=== PATIENT | female | born 1990 | race Caucasian/White ===

== ENCOUNTER 2020-06-17 17:21 | Inpatient (IN) | payer BC ==
--- NOTE | 2020-06-02 05:52 | PCM.SN.2 ---
- Free Text/Narrative Note: Lauryn is a 29-year-old 1 para 0 white female at 36+ weeks gestational age who is transferred to labor and delivery for outpatient electronic monitoring and follow-up of a biophysical profile done on the afternoon of 06/01/2020 and evaluation of patient's ultrasound finding of a hypocoiled cord. Biophysical profile results were 4 on a scale of 8. Notably present was normal amount of amniotic fluid. Patient has reported good activity up to this point. Electronic monitoring was performed and showed a reactive nonstress test. No significant contractions were noted. This resulted in a total biophysical profile score of 6/10. Results of this were discussed with patient and she is reassured. Assessment: 1. 36+ week intrauterine -less than optimally reassuring with ultrasound portion of biophysical profile now with a score of 6/10 bleed biophysical profile which included a reactive nonstress test. 2. History of ultrasound finding of a hypocoiled umbilical cord. Patient has been informed of the possible chance of this fluid being increased risk for stillborn, growth restriction, meconium-stained amniotic fluid and section. Plan: Plan: 1. Repeat biophysical profile 06/02/2020. 2. Patient to continue monitoring activity very closely. She will call if this decreases in the next 20 hours.
[2020-06-17] MEDS: Lactated Ringers 1,000 ML IV SCH ×3 (18:00→21:11)
[2020-06-17] MEDS ORDERED: Ondansetron 4 MG/2 ML SDV IVPUSH PRN (18:02)
[2020-06-17] MEDS ORDERED: Nalbuphine 10 MG/1 ML Vial IVPUSH PRN (18:02)
[2020-06-17] MEDS ORDERED: Lidocaine 1% 50 ML MDV INJECT ONE (18:02)
[2020-06-17] MEDS ORDERED: Sodium Chloride 0.9% 10 ML Syringe FLUSH PRN (18:02)
[2020-06-17] MEDS ORDERED: Bupivacaine/fentaNYL/NS 100 ML Bag EPIDUR PRN (18:24)
[2020-06-17] MEDS ORDERED: diphenhydrAMINE 50 MG/ML SDV IVPUSH PRN (18:24)
[2020-06-17] MEDS ORDERED: ePHEDrine 50 MG/ML SDV IVPUSH PRN (18:24)
[2020-06-17] MEDS ORDERED: fentaNYL 100 MCG/2 ML SDV EPIDUR PRN (18:24)
--- NOTE | 2020-06-17 19:14 | PCM.PREANE ---
Preanesthetic Assessment - Procedure Proposed Procedure: Labor Epidural - Anesthesia/Transfusion/Family Hx Anesthesia History: Prior Anesthesia Without Reaction Family History of Anesthesia Reaction: No - Review of Systems General: No Symptoms Pulmonary: No Symptoms Cardiovascular: No Symptoms Gastrointestinal: Abdominal Pain, Constipation, Flatus Neurological: No Symptoms Other: Reports: None - Physical Assessment Height: 1.65 m Weight: 97.976 kg ASA Class: 2 Airway Class: Mallampati = 2 Dentition: Reports: Normal Dentition Thyro-Mental Finger Breadths: 2 Mouth Opening Finger Breadths: 2 ROM/Head Extension: Full Lungs: Clear to Auscultation, Normal Respiratory Effort Cardiovascular: Regular Rate, Regular Rhythm - Lab Values: Laboratory Last Values WBC 14.47 K/mm3 (3.98-10.04) H 06/17/20 18:06 RBC 4.40 M/mm3 (3.98-5.22) 06/17/20 18:06 Hgb 12.2 gm/dl (11.2-15.7) 06/17/20 18:06 Hct 37.3 % (34.1-44.9) 06/17/20 18:06 MCV 84.8 fl (79.4-94.8) 06/17/20 18:06 MCH 27.7 pg (25.6-32.2) 06/17/20 18:06 MCHC 32.7 g/dl (32.2-35.5) 06/17/20 18:06 RDW Std Deviation 43.3 fL (36.4-46.3) 06/17/20 18:06 Plt Count 204 K/mm3 (182-369) 06/17/20 18:06 MPV 8.9 fl (9.4-12.3) L 06/17/20 18:06 Neut % (Auto) 84.4 % (34.0-71.1) H 06/17/20 18:06 Lymph % (Auto) 9.9 % (19.3-51.7) L 06/17/20 18:06 [place] % (Auto) 5.2 % (4.7-12.5) 06/17/20 18:06 Eos % (Auto) 0.1 (0.7-5.8) L 06/17/20 18:06 Baso % (Auto) 0.1 % (0.1-1.2) 06/17/20 18:06 Neut # (Auto) 12.22 K/mm3 (1.56-6.13) H 06/17/20 18:06 Lymph # (Auto) 1.43 K/mm3 (1.18-3.74) 06/17/20 18:06 [place] # (Auto) 0.75 K/mm3 (0.24-0.36) H 06/17/20 18:06 Eos # (Auto) 0.01 K/mm3 (0.04-0.36) L 06/17/20 18:06 Baso # (Auto) 0.01 K/mm3 (0.01-0.08) 06/17/20 18:06 Manual Slide Review Abnormal smear 06/17/20 18:06 SARS-CoV-2 RNA (PENNY) Negative (NEGATIVE) 06/17/20 17:45 Blood Type O POSITIVE 06/17/20 18:06 - Allergies Allergies/Adverse Reactions: Allergies Allergy/AdvReac Type Severity Reaction Status Date / Time No Known Allergies Allergy Verified 06/01/20 16:49 - Acknowledgements Anesthesia Type Planned: Epidural Pt an Appropriate Candidate for the Planned Anesthesia: Yes Alternatives and Risks of Anesthesia Discussed w Pt/Guardian: Yes Pt/Guardian Understands and Agrees with Anesthesia Plan: Yes PreAnesthesia Questionnaire - HOME MEDS Home Medications: Home Meds Calcium Carbonate [Calcium] 500 mg PO DAILY 06/01/20 [History] Mv-Mn/Iron/FA/Herbal/Digestive [ One Tablet] 1 each PO DAILY 06/01/20 [History] - CURRENT (IN HOUSE) MEDS Current Meds: Current Medications Diphenhydramine HCl (Benadryl) 25 mg IVPUSH Q6H PRN PRN Reason: pruritis Ephedrine Sulfate (Ephedrine Sulfate) 5 mg IVPUSH ASDIRECTED PRN PRN Reason: Hypotension Fentanyl (Sublimaze) 100 mcg EPIDUR Q3H PRN PRN Reason: Pain Last Admin: 06/17/20 18:42 Dose: 100 mcg Documented by: Fentanyl/Bupivacaine HCl (Fentanyl/Bupivacaine/Ns 2 Mcg-0.125% 100 Ml) 100 ml EPIDUR ASDIRECTED PRN PRN Reason: Pain Last Admin: 06/17/20 18:43 Dose: 100 ml Documented by: Oxytocin/Lactated Ringer's (Pitocin In Lr 10 Units/1,000 Ml) 10 unit in 1,000 mls @ 500 mls/hr IV .CONTINUOUS SONIDO Lactated Ringer's (Ringers, Lactated) 1,000 mls @ 100 mls/hr IV ASDIRECTED SONIDO Last Admin: 06/17/20 18:44 Dose: 100 mls/hr Documented by: Nalbuphine HCl (Nubain) 10 mg IVPUSH Q2H PRN PRN Reason: Pain Ondansetron HCl (Zofran) 4 mg IVPUSH Q4H PRN PRN Reason: Nausea/Vomiting Sodium Chloride (Saline Flush) 10 ml FLUSH ASDIRECTED PRN PRN Reason: Keep Vein Open Discontinued Medications Lidocaine HCl (Xylocaine 1%) 50 ml INJECT ONETIME ONE Stop: 06/17/20 18:03
--- NOTE | 2020-06-17 19:27 | PCM.LDHP ---
<Lashon Pastor I - Last Filed: 06/17/20 19:15> L&D History of Present Illness - General Date of Service: 06/17/20 Admit Problem/Dx: Patient Status Order with Admit Dx/Problem 06/17/20 18:02 Patient Status [ADT] Routine Admission Diagnosis/Problem Admission Diagnosis/Problem Source of Information: Patient History Limitations: Reports: No Limitations - History of Present Illness Introduction:: Lauryn Lee is 29-year-old at 39 weeks 0 days with TEJAS of 06/24/2020 that presents to labor and delivery today with contractions that are 2 minutes apart. She reports that contractions began this morning at 5 am accompanied by discharge of parts of the mucus plug. She reports that upon arrival to the hospital, she experienced her bloody show. She states that she is experiencing good movement. Lauryn reports that she has experienced mild pedal edema throughout her that is alleviated by daily use of compression socks. She denies headache, changes in vision, or right upper quadrant pain. She denies heart palpitations, chest pain, or shortness of breath. Pain Score: 10 - Related Data Allergies/Adverse Reactions: Allergies Allergy/AdvReac Type Severity Reaction Status Date / Time No Known Allergies Allergy Verified 06/17/20 21:57 Home Medications: Home Meds Calcium Carbonate [Calcium] 500 mg PO DAILY 06/17/20 [History] Ferrous Sulfate [Iron] 325 mg PO DAILY 06/17/20 [History] No122/Iron/Folic Acid [ Multi Tablet] 1 each PO DAILY 06/17/20 [History] H&P Review of Systems - Review of Systems: Review Of Systems: See Below General: Reports: No Symptoms HEENT: Reports: No Symptoms Pulmonary: Reports: No Symptoms Cardiovascular: Reports: No Symptoms Gastrointestinal: Reports: No Symptoms Genitourinary: Reports: No Symptoms L&D Exam - Exam Exam: See Below - Vital Signs Weight: 216 lb - Exam General: Alert, Oriented Lungs: Clear to Auscultation, Normal Respiratory Effort Cardiovascular: Regular Rate, Regular Rhythm Extremities: No Pedal Edema - Patient Data Lab Results Last 24 hrs: Laboratory Results - last 24 hr 06/17/20 06/17/20 06/17/20 Range/Units 17:45 18:06 18:06 WBC 14.47 H (3.98-10.04) K/mm3 RBC 4.40 (3.98-5.22) M/mm3 Hgb 12.2 (11.2-15.7) gm/dl Hct 37.3 (34.1-44.9) % MCV 84.8 (79.4-94.8) fl MCH 27.7 (25.6-32.2) pg MCHC 32.7 (32.2-35.5) g/dl RDW Std Deviation 43.3 (36.4-46.3) fL Plt Count 204 (182-369) K/mm3 MPV 8.9 L (9.4-12.3) fl Neut % (Auto) 84.4 H (34.0-71.1) % Lymph % (Auto) 9.9 L (19.3-51.7) % [place] % (Auto) 5.2 (4.7-12.5) % Eos % (Auto) 0.1 L (0.7-5.8) Baso % (Auto) 0.1 (0.1-1.2) % Neut # (Auto) 12.22 H (1.56-6.13) K/mm3 Lymph # (Auto) 1.43 (1.18-3.74) K/mm3 [place] # (Auto) 0.75 H (0.24-0.36) K/mm3 Eos # (Auto) 0.01 L (0.04-0.36) K/mm3 Baso # (Auto) 0.01 (0.01-0.08) K/mm3 Manual Slide Review Abnormal smear SARS-CoV-2 RNA (PENNY) Negative (NEGATIVE) Blood Type O POSITIVE Result Diagrams: 06/17/20 18:06 Orders Last 24hrs: Active Orders 24 hr Category Date Time Status Patient Status [ADT] Routine ADT 06/17/20 18:02 Active Activity as Tolerated [RC] PFP Care 06/17/20 18:02 Active Communication Order [RC] ASDIRECTED Care 06/17/20 18:02 Active Heart Tones [RC] ASDIRECTED Care 06/17/20 18:03 Active Non Stress Test [RC] PER UNIT ROUTINE Care 06/17/20 18:02 Active Notify Provider [RC] ASDIRECTED Care 06/17/20 18:24 Active Notify Provider [RC] PFP Care 06/17/20 18:02 Active Notify Provider [RC] PRN Care 06/17/20 18:02 Active Peripheral IV Care [RC] . DIRECTED Care 06/17/20 18:03 Active Pump Management, Intrathecal [RC] ASDIRECTED Care 06/17/20 18:06 Active Urinary Catheter Assessment [RC] ASDIRECTED Care 06/17/20 18:02 Active Vital Signs [RC] PER UNIT ROUTINE Care 06/17/20 18:02 Active Regular Diet [DIET] Diet 06/17/20 Dinner Active RAPID PLASMA REAGIN,RPR [CHEM] Routine Lab 06/17/20 18:02 Ordered TYPE AND SCREEN [BBK] Stat Lab 06/17/20 18:06 Results Bupivacaine/fentaNYL/NS [fentaNYL/Bupivacaine/NS 2 MCG- Med 06/17/20 18:24 Active 0.125% 100 ML] 100 ml EPIDUR ASDIRECTED PRN Lactated Ringers [Ringers, Lactated] 1,000 ml Med 06/17/20 18:15 Active IV ASDIRECTED Nalbuphine [Nubain] Med 06/17/20 18:02 Active 10 mg IVPUSH Q2H PRN Ondansetron [Zofran] Med 06/17/20 18:02 Active 4 mg IVPUSH Q4H PRN Oxytocin/Lactated Ringers [Pitocin in LR 10 Units/1,000 Med 06/17/20 18:15 Ac tive ML] 10 unit in 1,000 ml IV .CONTINUOUS Sodium Chloride 0.9% [Saline Flush] Med 06/17/20 18:02 Active 10 ml FLUSH ASDIRECTED PRN diphenhydrAMINE [Benadryl] Med 06/17/20 18:24 Active 25 mg IVPUSH Q6H PRN ePHEDrine [ePHEDrine sulfate] Med 06/17/20 18:24 Active 5 mg IVPUSH ASDIRECTED PRN fentaNYL [Sublimaze] Med 06/17/20 18:24 Active 100 mcg EPIDUR Q3H PRN Electronic Heart Tones Ext w TOCO [WOMSER] Oth 06/17/20 18:02 Ordered Routine Electronic Heart Tones Internal [WOMSER] Per Unit Oth 06/17/20 18:02 Ordered Routine Peripheral IV Insertion Adult [OM.PC] Routine Oth 06/17/20 18:02 Ordered Resuscitation Status Routine Resus Stat 06/17/20 18:02 Ordered Medication Orders Diphenhydramine HCl (Benadryl) 25 mg IVPUSH Q6H PRN PRN Reason: pruritis Ephedrine Sulfate (Ephedrine Sulfate) 5 mg IVPUSH ASDIRECTED PRN PRN Reason: Hypotension Fentanyl (Sublimaze) 100 mcg EPIDUR Q3H PRN PRN Reason: Pain Last Admin: 06/17/20 18:42 Dose: 100 mcg Documented by: JOSE ANTONIO Fentanyl/Bupivacaine HCl (Fentanyl/Bupivacaine/Ns 2 Mcg-0.125% 100 Ml) 100 ml EPIDUR ASDIRECTED PRN PRN Reason: Pain Last Admin: 06/17/20 18:43 Dose: 100 ml Documented by: JOSE ANTONIO Oxytocin/Lactated Ringer's (Pitocin In Lr 10 Units/1,000 Ml) 10 unit in 1,000 mls @ 500 mls/hr IV .CONTINUOUS SONIDO Lactated Ringer's (Ringers, Lactated) 1,000 mls @ 100 mls/hr IV ASDIRECTED SONIDO Last Admin: 06/17/20 18:44 Dose: 100 mls/hr Documented by: JOSE ANTONIO Infusion: 06/17/20 18:44 Dose: 99 mls/hr Documented by: JOSE ANTONIO Admin: 06/17/20 18:00 Dose: 99 mls/hr Documented by: JOSE ANTONIO Nalbuphine HCl (Nubain) 10 mg IVPUSH Q2H PRN PRN Reason: Pain Ondansetron HCl (Zofran) 4 mg IVPUSH Q4H PRN PRN Reason: Nausea/Vomiting Sodium Chloride (Saline Flush) 10 ml FLUSH ASDIRECTED PRN PRN Reason: Keep Vein Open <Jeff Woods - Last Filed: 06/17/20 22:45> L&D History of Present Illness - General Admit Problem/Dx: Patient Status Order with Admit Dx/Problem 06/17/20 18:02 Patient Status [ADT] Routine Admission Diagnosis/Problem Admission Diagnosis/Problem - History of Present Illness Introduction:: 12/2019 blood type O+ antibody screen negative, hemoglobin/hematocrit 12.8/38.5 platelets 273,000, rubella immune, serology nonreactive, urine culture mixed joby, hepatitis B surface antigen negative, HIV negative, C and Chlamydia probe negative. hemoglobin/hematocrit 11.2/34.4 platelets 240,000, 1 hour OB glucose screen 169. 3-hour glucose tolerance test on 03/17/2020 fasting 85, 1 hour 122, 2-hour 130, 3-hour 112. RPR nonreactive on 03/15/2020 group B strep negative on 05/24/2020 L&D Exam - Vital Signs Vital Signs: Last Vital Signs Temp 97.8 F 06/17/20 19:15 Pulse 105 H 06/17/20 19:15 Resp 18 06/17/20 19:15 BP 106/53 L 06/17/20 19:15 Pulse Ox 100 06/17/20 19:15 - Patient Data Lab Results Last 24 hrs: Laboratory Results - last 24 hr 06/17/20 06/17/20 06/17/20 Range/Units 17:45 18:06 18:06 WBC 14.47 H (3.98-10.04) K/mm3 RBC 4.40 (3.98-5.22) M/mm3 Hgb 12.2 (11.2-15.7) gm/dl Hct 37.3 (34.1-44.9) % MCV 84.8 (79.4-94.8) fl MCH 27.7 (25.6-32.2) pg MCHC 32.7 (32.2-35.5) g/dl RDW Std Deviation 43.3 (36.4-46.3) fL Plt Count 204 (182-369) K/mm3 MPV 8.9 L (9.4-12.3) fl Neut % (Auto) 84.4 H (34.0-71.1) % Lymph % (Auto) 9.9 L (19.3-51.7) % [place] % (Auto) 5.2 (4.7-12.5) % Eos % (Auto) 0.1 L (0.7-5.8) Baso % (Auto) 0.1 (0.1-1.2) % Neut # (Auto) 12.22 H (1.56-6.13) K/mm3 Lymph # (Auto) 1.43 (1.18-3.74) K/mm3 [place] # (Auto) 0.75 H (0.24-0.36) K/mm3 Eos # (Auto) 0.01 L (0.04-0.36) K/mm3 Baso # (Auto) 0.01 (0.01-0.08) K/mm3 Manual Slide Review Abnormal smear SARS-CoV-2 RNA (PENNY) Negative (NEGATIVE) Blood Type O POSITIVE Gel Antibody Screen Negative Result Diagrams: 06/17/20 18:06 - Problem List (1) 39 weeks gestation of SNOMED Code(s): 30711277 ICD Code: Z3A.39 - 39 WEEKS GESTATION OF Status: Acute Current Visit: Yes Problem List Initiated/Reviewed/Updated: No Orders Last 24hrs: Active Orders 24 hr Category Date Time Status Patient Status [ADT] Routine ADT 06/17/20 18:02 Active Activity as Tolerated [RC] PFP Care 06/17/20 18:02 Active Communication Order [RC] ASDIRECTED Care 06/17/20 18:02 Active Notify Provider [RC] ASDIRECTED Care 06/17/20 18:24 Active Notify Provider [RC] PFP Care 06/17/20 18:02 Active Notify Provider [RC] PRN Care 06/17/20 18:02 Active Peripheral IV Care [RC] Q2HR Care 06/17/20 18:03 Active Urinary Catheter Assessment [RC] ASDIRECTED Care 06/17/20 18:02 Active Regular Diet [DIET] Diet 06/17/20 Dinner Active RAPID PLASMA REAGIN,RPR [CHEM] Routine Lab 06/17/20 18:02 Ordered Bupivacaine/fentaNYL/NS [fentaNYL/Bupivacaine/NS 2 MCG- Med 06/17/20 18:24 Active 0.125% 100 ML] 100 ml EPIDUR ASDIRECTED PRN Lactated Ringers [Ringers, Lactated] 1,000 ml Med 06/17/20 18:15 Active IV ASDIRECTED Nalbuphine [Nubain] Med 06/17/20 18:02 Active 10 mg IVPUSH Q2H PRN Ondansetron [Zofran] Med 06/17/20 18:02 Active 4 mg IVPUSH Q4H PRN Oxytocin/Lactated Ringers [Pitocin in LR 10 Units/1,000 Med 06/17/20 18:15 Active ML] 10 unit in 1,000 ml IV .CONTINUOUS Sodium Chloride 0.9% [Saline Flush] Med 06/17/20 18:02 Active 10 ml FLUSH ASDIRECTED PRN diphenhydrAMINE [Benadryl] Med 06/17/20 18:24 Active 25 mg IVPUSH Q6H PRN ePHEDrine [ePHEDrine sulfate] Med 06/17/20 18:24 Active 5 mg IVPUSH ASDIRECTED PRN fentaNYL [Sublimaze] Med 06/17/20 18:24 Active 100 mcg EPIDUR Q3H PRN Electronic Heart Tones Ext w TOCO [WOMSER] Oth 06/17/20 18:02 Ordered Routine Electronic Heart Tones Internal [WOMSER] Per Unit Oth 06/17/20 18:02 Ordered Routine Peripheral IV Insertion Adult [OM.PC] Routine Oth 06/17/20 18:02 Ordered Resuscitation Status Routine Resus Stat 06/17/20 18:02 Ordered Medication Orders Diphenhydramine HCl (Benadryl) 25 mg IVPUSH Q6H PRN PRN Reason: pruritis Ephedrine Sulfate (Ephedrine Sulfate) 5 mg IVPUSH ASDIRECTED PRN PRN Reason: Hypotension Fentanyl (Sublimaze) 100 mcg EPIDUR Q3H PRN PRN Reason: Pain Last Admin: 06/17/20 18:42 Dose: 100 mcg Documented by: JOSE ANTONIO Fentanyl/Bupivacaine HCl (Fentanyl/Bupivacaine/Ns 2 Mcg-0.125% 100 Ml) 100 ml EPIDUR ASDIRECTED PRN PRN Reason: Pain Last Admin: 06/17/20 18:43 Dose: 100 ml Documented by: JOSE ANTONIO Oxytocin/Lactated Ringer's (Pitocin In Lr 10 Units/1,000 Ml) 10 unit in 1,000 mls @ 500 mls/hr IV .CONTINUOUS SONIDO Lactated Ringer's (Ringers, Lactated) 1,000 mls @ 100 mls/hr IV ASDIRECTED SONIDO Last Admin: 06/17/20 21:11 Dose: 100 mls/hr Documented by: Infusion: 06/17/20 21:11 Dose: 100 mls/hr Documented by: Admin: 06/17/20 18:44 Dose: 100 mls/hr Documented by: JOSE ANTONIO Infusion: 06/17/20 18:44 Dose: 99 mls/hr Documented by: JOSE ANTONIO Admin: 06/17/20 18:00 Dose: 99 mls/hr Documented by: JOSE ANTONIO Nalbuphine HCl (Nubain) 10 mg IVPUSH Q2H PRN PRN Reason: Pain Ondansetron HCl (Zofran) 4 mg IVPUSH Q4H PRN PRN Reason: Nausea/Vomiting Sodium Chloride (Saline Flush) 10 ml FLUSH ASDIRECTED PRN PRN Reason: Keep Vein Open Patient seen, examined by me, discussed with student. Assessment/Plan Comment:: Plan delivery
[2020-06-17] MEDS: Oxytocin/Lactated Ringers 10 UNIT/1,000 ML BAG IV SCH (23:24)
--- NOTE | 2020-06-17 23:55 | PCM.DEL ---
L & D Note - General Info Date of Service: 06/17/20 Mother's Due Date: 06/24/20 - Delivery Note Labor: Spontaneous Delivery Outcome: Livebirth (female liveborn 2323 hours on ay 06/17/2020 UZMA over no epistiotomy with 2nd degree laceration under epidural anesthesia weight pending 8/9) Delivery Method: Spontaneous Vaginal Delivery-Single Infant Delivery Mode: Spontaneous Presentation: Left Occiput Anterior (UZMA) Nuchal Cord: None (hypocoiled cord) Prep: Povidone-Iodine (Betadine Anesthesia Type: Combined Spinal Epidural Amniotic Fluid Description: Clear Episiotomy Type: None Laceration: 2nd Degree (midline) Suture type: Other (monocryl) Suture size: 3-0 (x2) Placenta: Intact, Spontaneous (2328 hours Saturday06/17/2020 intack discarded hypocoiled cord) Cord: 3 Vessels Estimated Blood Loss: 250 Resuscitation Needed: No [place]: Suctioned, Bulb Syringe, Stimulated, Warmed, [place] Used, Warmer Used Provider: Jeff Woods Score 1 min: 8 Score 5 min: 9 - General Info Date of Service: 06/17/20 Admission Dx/Problem (Free Text): Patient Status Order with Admit Dx/Problem 06/17/20 18:02 Patient Status [ADT] Routine Admission Diagnosis/Problem Admission Diagnosis/Problem Functional Status: Reports: Pain Controlled - Review of Systems General: Reports: No Symptoms HEENT: Reports: No Symptoms Pulmonary: Reports: No Symptoms Cardiovascular: Reports: No Symptoms Gastrointestinal: Reports: No Symptoms Genitourinary: Reports: No Symptoms Musculoskeletal: Reports: No Symptoms Skin: Reports: No Symptoms Neurological: Reports: No Symptoms Psychiatric: Reports: No Symptoms - Patient Data Vitals - Most Recent: Last Vital Signs Temp 97.8 F 06/17/20 19:15 Pulse 105 H 06/17/20 19:15 Resp 18 06/17/20 19:15 BP 106/53 L 06/17/20 19:15 Pulse Ox 100 06/17/20 19:15 Weight - Most Recent: 216 lb 14.4 oz Lab Results Last 24 Hours: Laboratory Results - last 24 hr 06/17/20 06/17/20 06/17/20 Range/Units 17:45 18:06 18:06 WBC 14.47 H (3.98-10.04) K/mm3 RBC 4.40 (3.98-5.22) M/mm3 Hgb 12.2 (11.2-15.7) gm/dl Hct 37.3 (34.1-44.9) % MCV 84.8 (79.4-94.8) fl MCH 27.7 (25.6-32.2) pg MCHC 32.7 (32.2-35.5) g/dl RDW Std Deviation 43.3 (36.4-46.3) fL Plt Count 204 (182-369) K/mm3 MPV 8.9 L (9.4-12.3) fl Neut % (Auto) 84.4 H (34.0-71.1) % Lymph % (Auto) 9.9 L (19.3-51.7) % [place] % (Auto) 5.2 (4.7-12.5) % Eos % (Auto) 0.1 L (0.7-5.8) Baso % (Auto) 0.1 (0.1-1.2) % Neut # (Auto) 12.22 H (1.56-6.13) K/mm3 Lymph # (Auto) 1.43 (1.18-3.74) K/mm3 [place] # (Auto) 0.75 H (0.24-0.36) K/mm3 Eos # (Auto) 0.01 L (0.04-0.36) K/mm3 Baso # (Auto) 0.01 (0.01-0.08) K/mm3 Manual Slide Review Abnormal smear SARS-CoV-2 RNA (PENNY) Negative (NEGATIVE) Blood Type O POSITIVE Gel Antibody Screen Negative Med Orders - Current: Current Medications Diphenhydramine HCl (Benadryl) 25 mg IVPUSH Q6H PRN PRN Reason: pruritis Ephedrine Sulfate (Ephedrine Sulfate) 5 mg IVPUSH ASDIRECTED PRN PRN Reason: Hypotension Fentanyl (Sublimaze) 100 mcg EPIDUR Q3H PRN PRN Reason: Pain Last Admin: 06/17/20 18:42 Dose: 100 mcg Documented by: Fentanyl/Bupivacaine HCl (Fentanyl/Bupivacaine/Ns 2 Mcg-0.125% 100 Ml) 100 ml EPIDUR ASDIRECTED PRN PRN Reason: Pain Last Admin: 06/17/20 18:43 Dose: 100 ml Documented by: Oxytocin/Lactated Ringer's (Pitocin In Lr 10 Units/1,000 Ml) 10 unit in 1,000 mls @ 500 mls/hr IV .CONTINUOUS SONIDO Lactated Ringer's (Ringers, Lactated) 1,000 mls @ 100 mls/hr IV ASDIRECTED SONIDO Last Admin: 06/17/20 21:11 Dose: 100 mls/hr Documented by: Nalbuphine HCl (Nubain) 10 mg IVPUSH Q2H PRN PRN Reason: Pain Ondansetron HCl (Zofran) 4 mg IVPUSH Q4H PRN PRN Reason: Nausea/Vomiting Sodium Chloride (Saline Flush) 10 ml FLUSH ASDIRECTED PRN PRN Reason: Keep Vein Open Discontinued Medications Lidocaine HCl (Xylocaine 1%) 50 ml INJECT ONETIME ONE Stop: 06/17/20 18:03 - Exam Quality Assessment: DVT Prophylaxis General: Alert Extremities: Normal Inspection, Non-Tender, No Pedal Edema, Normal Capillary Refill - Problem List & Annotations (1) 39 weeks gestation of SNOMED Code(s): 38204913 Code(s): Z3A.39 - 39 WEEKS GESTATION OF Status: Acute Current Visit: Yes (2) Second degree perineal laceration during delivery SNOMED Code(s): 7079814 Code(s): O70.1 - SECOND DEGREE PERINEAL LACERATION DURING DELIVERY Status: Acute Current Visit: Yes (3) Cord complication NEC-deliv SNOMED Code(s): 353279114, 808160508 Code(s): O69.89X0 - LABOR AND DELIVERY COMPLICATED BY OTH CORD COMP, UNSP Status: Acute Current Visit: Yes - Problem List Review Problem List Initiated/Reviewed/Updated: No - My Orders Last 24 Hours: My Active Orders 06/17/20 Dinner Regular Diet [DIET] 06/17/20 18:02 Patient Status [ADT] Routine Activity as Tolerated [RC] PFP Communication Order [RC] ASDIRECTED Notify Provider [RC] PFP Notify Provider [RC] PRN Urinary Catheter Assessment [RC] ASDIRECTED RAPID PLASMA REAGIN,RPR [CHEM] Routine Nalbuphine [Nubain] 10 mg IVPUSH Q2H PRN Ondansetron [Zofran] 4 mg IVPUSH Q4H PRN Sodium Chloride 0.9% [Saline Flush] 10 ml FLUSH ASDIRECTED PRN Electronic Heart Tones Ext w TOCO [WOMSER] Routine Electronic Heart Tones Internal [WOMSER] Per Unit Routine Peripheral IV Insertion Adult [OM.PC] Routine Resuscitation Status Routine 06/17/20 18:03 Peripheral IV Care [RC] Q2HR 06/17/20 18:15 Lactated Ringers [Ringers, Lactated] 1,000 ml IV ASDIRECTED Oxytocin/Lactated Ringers [Pitocin in LR 10 Units/1,000 ML] 10 unit in 1,000 ml IV .CONTINUOUS - Plan Plan:: Plan delivery
[2020-06-18] MEDS: Oxytocin/Lactated Ringers 10 UNIT/1,000 ML BAG IV SCH (00:27)
[2020-06-18] MEDS ORDERED: Acetaminophen 325 MG Tab PO PRN (00:50)
[2020-06-18] MEDS ORDERED: Benzocaine/Menthol 20%-0.5% Spray 56 GM Canister TOP PRN (01:42)
[2020-06-18] MEDS ORDERED: Witch Hazel Medicated Pads 40/Jar TOP PRN (01:42)
[2020-06-18] MEDS ORDERED: Bupivacaine 0.25% 10 ML SDV ONE (06:00)
--- NOTE | 2020-06-18 10:11 | PCM.SN.2 ---
- Free Text/Narrative Note: exam Afebrile, chest clear, uterus at umbilicus -1. No heavy vaginal bleeding. No leg cramping.
[2020-06-18] MEDS: Ibuprofen 600 MG Tab PO PRN ×2 (14:26→22:45)
[2020-06-19] MEDS: Ibuprofen 600 MG Tab PO PRN (03:52)
--- NOTE | 2020-06-19 09:21 | PCM48HPAN ---
Post Anesthesia Note - EVALUATION WITHIN 48HRS OF ANESTHETIC Vital Signs in Normal Range: Yes Patient Participated in Evaluation: Yes Respiratory Function Stable: Yes Airway Patent: Yes Cardiovascular Function Stable: Yes Hydration Status Stable: Yes Pain Control Satisfactory: Yes Nausea and Vomiting Control Satisfactory: Yes Mental Status Recovered: Yes Vital Signs: Last Vital Signs Temp 36.5 C 06/19/20 08:40 Pulse 93 06/19/20 08:40 Resp 15 06/19/20 08:40 BP 119/78 06/19/20 08:40 Pulse Ox 99 06/19/20 08:40
--- NOTE | 2020-06-19 10:27 | PCM.DCSUM1 ---
Discharge Summary - Hospital Course Free Text/Narrative:: [facility] L/D Delivery Note Patient Name: KAITLYN GOMEZ Date of : 86 Patient Status: Inpatient Attending Provider: Jeff Woods Date: 06/17/20 23:48 Initialization Date: 06/17/20 23:48 L & D Note - General Info Date of Service: 06/17/20 Mother's Due Date: 06/24/20 - Delivery Note Labor: Spontaneous Delivery Outcome: Livebirth (female liveborn 2323 hours on 06/17/2020 UZMA over no epistiotomy with 2nd degree laceration under epidural anesthesia weight pending 8/9) Infant Delivery Method: Spontaneous Vaginal Delivery-Single Delivery Mode: Spontaneous Presentation: Left Occiput Anterior (UZMA) Nuchal Cord: None (hypocoiled cord) Prep: Povidone-Iodine (Betadine Anesthesia Type: Combined Spinal Epidural Amniotic Fluid Description: Clear Episiotomy Type: None Laceration: 2nd Degree (midline) Suture type: Other (monocryl) Suture size: 3-0 (x2) Placenta: Intact, Spontaneous (2328 hours Saturday06/17/2020 intack discarded hypocoiled cord) Cord: 3 Vessels Estimated Blood Loss: 250 Resuscitation Needed: No [place]: Suctioned, Bulb Syringe, Stimulated, Warmed, [place] Used, Warmer Used Provider: Jeff Woods Score 1 min: 8 Score 5 min: 9 - General Info Date of Service: 06/17/20 Admission Dx/Problem (Free Text): Patient Status Order with Admit Dx/Problem 06/17/20 18:02 Patient Status [ADT] Routine Admission Diagnosis/Problem Admission Diagnosis/Problem Functional Status: Reports: Pain Controlled - Review of Systems General: Reports: No Symptoms HEENT: Reports: No Symptoms Pulmonary: Reports: No Symptoms Cardiovascular: Reports: No Symptoms Gastrointestinal: Reports: No Symptoms Genitourinary: Reports: No Symptoms Musculoskeletal: Reports: No Symptoms Skin: Reports: No Symptoms Neurological: Reports: No Symptoms Psychiatric: Reports: No Symptoms - Patient Data Vitals - Most Recent: Last Vital Signs Temp 97.8 F 06/17/20 19:15 Pulse 105 H 06/17/20 19:15 Resp 18 06/17/20 19:15 BP 106/53 L 06/17/20 19:15 Pulse Ox 100 06/17/20 19:15 Weight - Most Recent: 216 lb 14.4 oz Lab Results Last 24 Hours: Laboratory Results - last 24 hr 06/17/20 06/17/20 06/17/20 Range/Units 17:45 18:06 18:06 WBC 14.47 H (3.98-10.04) K/mm3 RBC 4.40 (3.98-5.22) M/mm3 Hgb 12.2 (11.2-15.7) gm/dl Hct 37.3 (34.1-44.9) % MCV 84.8 (79.4-94.8) fl MCH 27.7 (25.6-32.2) pg MCHC 32.7 (32.2-35.5) g/dl RDW Std Deviation 43.3 (36.4-46.3) fL Plt Count 204 (182-369) K/mm3 MPV 8.9 L (9.4-12.3) fl Neut % (Auto) 84.4 H (34.0-71.1) % Lymph % (Auto) 9.9 L (19.3-51.7) % [place] % (Auto) 5.2 (4.7-12.5) % Eos % (Auto) 0.1 L (0.7-5.8) Baso % (Auto) 0.1 (0.1-1.2) % Neut # (Auto) 12.22 H (1.56-6.13) K/mm3 Lymph # (Auto) 1.43 (1.18-3.74) K/mm3 [place] # (Auto) 0.75 H (0.24-0.36) K/mm3 Eos # (Auto) 0.01 L (0.04-0.36) K/mm3 Baso # (Auto) 0.01 (0.01-0.08) K/mm3 Manual Slide Review Abnormal smear SARS-CoV-2 RNA (PENNY) Negative (NEGATIVE) Blood Type O POSITIVE Gel Antibody Screen Negative Med Orders - Current: Current Medications Diphenhydramine HCl (Benadryl) 25 mg IVPUSH Q6H PRN PRN Reason: pruritis Ephedrine Sulfate (Ephedrine Sulfate) 5 mg IVPUSH ASDIRECTED PRN PRN Reason: Hypotension Fentanyl (Sublimaze) 100 mcg EPIDUR Q3H PRN PRN Reason: Pain Last Admin: 06/17/20 18:42 Dose: 100 mcg Documented by: Fentanyl/Bupivacaine HCl (Fentanyl/Bupivacaine/Ns 2 Mcg-0.125% 100 Ml) 100 ml EPIDUR ASDIRECTED PRN PRN Reason: Pain Last Admin: 06/17/20 18:43 Dose: 100 ml Documented by: Oxytocin/Lactated Ringer's (Pitocin In Lr 10 Units/1,000 Ml) 10 unit in 1,000 mls @ 500 mls/hr IV .CONTINUOUS SONIDO Lactated Ringer's (Ringers, Lactated) 1,000 mls @ 100 mls/hr IV ASDIRECTED SONIDO Last Admin: 06/17/20 21:11 Dose: 100 mls/hr Documented by: Nalbuphine HCl (Nubain) 10 mg IVPUSH Q2H PRN PRN Reason: Pain Ondansetron HCl (Zofran) 4 mg IVPUSH Q4H PRN PRN Reason: Nausea/Vomiting Sodium Chloride (Saline Flush) 10 ml FLUSH ASDIRECTED PRN PRN Reason: Keep Vein Open Discontinued Medications Lidocaine HCl (Xylocaine 1%) 50 ml INJECT ONETIME ONE Stop: 06/17/20 18:03 - Exam Quality Assessment: DVT Prophylaxis General: Alert Extremities: Normal Inspection, Non-Tender, No Pedal Edema, Normal Capillary Refill - Problem List & Annotations (1) 39 weeks gestation of SNOMED Code(s): 42129947 Code(s): Z3A.39 - 39 WEEKS GESTATION OF Status: Acute Current Visit: Yes (2) Second degree perineal laceration during delivery SNOMED Code(s): 1679518 Code(s): O70.1 - SECOND DEGREE PERINEAL LACERATION DURING DELIVERY Status: Acute Current Visit: Yes (3) Cord complication NEC-deliv SNOMED Code(s): 199018150, 316354069 Code(s): O69.89X0 - LABOR AND DELIVERY COMPLICATED BY OTH CORD COMP, UNSP Status: Acute Current Visit: Yes - Problem List Review Problem List Initiated/Reviewed/Updated: No - My Orders Last 24 Hours: My Active Orders 12/04/20 Dinner Regular Diet [DIET] 06/17/20 18:02 Patient Status [ADT] Routine Activity as Tolerated [RC] PFP Communication Order [RC] ASDIRECTED Notify Provider [RC] PFP Notify Provider [RC] PRN Urinary Catheter Assessment [RC] ASDIRECTED RAPID PLASMA REAGIN,RPR [CHEM] Routine Nalbuphine [Nubain] 10 mg IVPUSH Q2H PRN Ondansetron [Zofran] 4 mg IVPUSH Q4H PRN Sodium Chloride 0.9% [Saline Flush] 10 ml FLUSH ASDIRECTED PRN Electronic Heart Tones Ext w TOCO [WOMSER] Routine Electronic Heart Tones Internal [WOMSER] Per Unit Routine Peripheral IV Insertion Adult [OM.PC] Routine Resuscitation Status Routine 06/17/20 18:03 Peripheral IV Care [RC] Q2HR 06/17/20 18:15 Lactated Ringers [Ringers, Lactated] 1,000 ml IV ASDIRECTED Oxytocin/Lactated Ringers [Pitocin in LR 10 Units/1,000 ML] 10 unit in 1,000 ml IV .CONTINUOUS - Plan Plan:: Plan delivery HPI Initial Comments: [facility] L/D Delivery Note Patient Name: KAITLYN GOMEZ Date of : 86 Patient Status: Inpatient Attending Provider: Jeff Woods Date: 06/17/20 23:48 Initialization Date: 06/17/20 23:48 L & D Note - General Info Date of Service: 06/17/20 Mother's Due Date: 06/24/20 - Delivery Note Labor: Spontaneous Delivery Outcome: Livebirth (female liveborn 2323 hours on Frdiay 06/17/2020 UZMA over no epistiotomy with 2nd degree laceration under epidural anesthesia weight pending 8/9) Infant Delivery Method: Spontaneous Vaginal Delivery-Single Infant Delivery Mode: Spontaneous Presentation: Left Occiput Anterior (UZMA) Nuchal Cord: None (hypocoiled cord) Prep: Povidone-Iodine (Betadine Anesthesia Type: Combined Spinal Epidural Amniotic Fluid Description: Clear Episiotomy Type: None Laceration: 2nd Degree (midline) Suture type: Other (monocryl) Suture size: 3-0 (x2) Placenta: Intact, Spontaneous (2328 hours Saturday06/17/2020 intack discarded hypocoiled cord) Cord: 3 Vessels Estimated Blood Loss: 250 Resuscitation Needed: No [place]: Suctioned, Bulb Syringe, Stimulated, Warmed, [place] Used, Warmer Used Provider: Jeff Woods Score 1 min: 8 Score 5 min: 9 - General Info Date of Service: 06/17/20 Admission Dx/Problem (Free Text): Patient Status Order with Admit Dx/Problem 06/17/20 18:02 Patient Status [ADT] Routine Admission Diagnosis/Problem Admission Diagnosis/Problem Functional Status: Reports: Pain Controlled - Review of Systems General: Reports: No Symptoms HEENT: Reports: No Symptoms Pulmonary: Reports: No Symptoms Cardiovascular: Reports: No Symptoms Gastrointestinal: Reports: No Symptoms Genitourinary: Reports: No Symptoms Musculoskeletal: Reports: No Symptoms Skin: Reports: No Symptoms Neurological: Reports: No Symptoms Psychiatric: Reports: No Symptoms - Patient Data Vitals - Most Recent: Last Vital Signs Temp 97.8 F 06/17/20 19:15 Pulse 105 H 06/17/20 19:15 Resp 18 06/17/20 19:15 BP 106/53 L 06/17/20 19:15 Pulse Ox 100 06/17/20 19:15 Weight - Most Recent: 216 lb 14.4 oz Lab Results Last 24 Hours: Laboratory Results - last 24 hr 06/17/20 06/17/20 06/17/20 Range/Units 17:45 18:06 18:06 WBC 14.47 H (3.98-10.04) K/mm3 RBC 4.40 (3.98-5.22) M/mm3 Hgb 12.2 (11.2-15.7) gm/dl Hct 37.3 (34.1-44.9) % MCV 84.8 (79.4-94.8) fl MCH 27.7 (25.6-32.2) pg MCHC 32.7 (32.2-35.5) g/dl RDW Std Deviation 43.3 (36.4-46.3) fL Plt Count 204 (182-369) K/mm3 MPV 8.9 L (9.4-12.3) fl Neut % (Auto) 84.4 H (34.0-71.1) % Lymph % (Auto) 9.9 L (19.3-51.7) % [place] % (Auto) 5.2 (4.7-12.5) % Eos % (Auto) 0.1 L (0.7-5.8) Baso % (Auto) 0.1 (0.1-1.2) % Neut # (Auto) 12.22 H (1.56-6.13) K/mm3 Lymph # (Auto) 1.43 (1.18-3.74) K/mm3 [place] # (Auto) 0.75 H (0.24-0.36) K/mm3 Eos # (Auto) 0.01 L (0.04-0.36) K/mm3 Baso # (Auto) 0.01 (0.01-0.08) K/mm3 Manual Slide Review Abnormal smear SARS-CoV-2 RNA (PENNY) Negative (NEGATIVE) Blood Type O POSITIVE Gel Antibody Screen Negative Med Orders - Current: Current Medications Diphenhydramine HCl (Benadryl) 25 mg IVPUSH Q6H PRN PRN Reason: pruritis Ephedrine Sulfate (Ephedrine Sulfate) 5 mg IVPUSH ASDIRECTED PRN PRN Reason: Hypotension Fentanyl (Sublimaze) 100 mcg EPIDUR Q3H PRN PRN Reason: Pain Last Admin: 06/17/20 18:42 Dose: 100 mcg Documented by: Fentanyl/Bupivacaine HCl (Fentanyl/Bupivacaine/Ns 2 Mcg-0.125% 100 Ml) 100 ml EPIDUR ASDIRECTED PRN PRN Reason: Pain Last Admin: 06/17/20 18:43 Dose: 100 ml Documented by: Oxytocin/Lactated Ringer's (Pitocin In Lr 10 Units/1,000 Ml) 10 unit in 1,000 mls @ 500 mls/hr IV .CONTINUOUS SONIDO Lactated Ringer's (Ringers, Lactated) 1,000 mls @ 100 mls/hr IV ASDIRECTED SONIDO Last Admin: 06/17/20 21:11 Dose: 100 mls/hr Documented by: Nalbuphine HCl (Nubain) 10 mg IVPUSH Q2H PRN PRN Reason: Pain Ondansetron HCl (Zofran) 4 mg IVPUSH Q4H PRN PRN Reason: Nausea/Vomiting Sodium Chloride (Saline Flush) 10 ml FLUSH ASDIRECTED PRN PRN Reason: Keep Vein Open Discontinued Medications Lidocaine HCl (Xylocaine 1%) 50 ml INJECT ONETIME ONE Stop: 06/17/20 18:03 - Exam Quality Assessment: DVT Prophylaxis General: Alert Extremities: Normal Inspection, Non-Tender, No Pedal Edema, Normal Capillary Refill - Problem List & Annotations (1) 39 weeks gestation of SNOMED Code(s): 49211484 Code(s): Z3A.39 - 39 WEEKS GESTATION OF Status: Acute Current Visit: Yes (2) Second degree perineal laceration during delivery SNOMED Code(s): 2829186 Code(s): O70.1 - SECOND DEGREE PERINEAL LACERATION DURING DELIVERY Status: Acute Current Visit: Yes (3) Cord complication NEC-deliv SNOMED Code(s): 227722803, 675820143 Code(s): O69.89X0 - LABOR AND DELIVERY COMPLICATED BY OTH CORD COMP, UNSP Status: Acute Current Visit: Yes - Problem List Review Problem List Initiated/Reviewed/Updated: No - My Orders Last 24 Hours: My Active Orders 06/17/20 Dinner Regular Diet [DIET] 06/17/20 18:02 Patient Status [ADT] Routine Activity as Tolerated [RC] PFP Communication Order [RC] ASDIRECTED Notify Provider [RC] PFP Notify Provider [RC] PRN Urinary Catheter Assessment [RC] ASDIRECTED RAPID PLASMA REAGIN,RPR [CHEM] Routine Nalbuphine [Nubain] 10 mg IVPUSH Q2H PRN Ondansetron [Zofran] 4 mg IVPUSH Q4H PRN Sodium Chloride 0.9% [Saline Flush] 10 ml FLUSH ASDIRECTED PRN Electronic Heart Tones Ext w TOCO [WOMSER] Routine Electronic Heart Tones Internal [WOMSER] Per Unit Routine Peripheral IV Insertion Adult [OM.PC] Routine Resuscitation Status Routine 06/17/20 18:03 Peripheral IV Care [RC] Q2HR 06/17/20 18:15 Lactated Ringers [Ringers, Lactated] 1,000 ml IV ASDIRECTED Oxytocin/Lactated Ringers [Pitocin in LR 10 Units/1,000 ML] 10 unit in 1,000 ml IV .CONTINUOUS - Plan Plan:: Plan delivery Brief History: [facility] LIVE . L/D Delivery Note. Patient Name: KAITLYN GOMEZ Record Number: [id number]. Date of : 86Patient Status: Inpatient. Attending Provider: Jeff Woodsbreanna Number: [id number]. Date: 06/17/20 23:48Initialization Date: 06/17/20 23:48. L & D Note. - General Info. Date of Service: 06/17/20. Mother's Due Date: 06/24/20. - Delivery Note. Labor: Spontaneous. Delivery Outcome: Livebirth (female liveborn 2323 hours on 06/17/2020 UZMA over no epistiotomy with 2nd degree laceration under epidural anesthesia weight pending 8/9). Delivery Method: Spontaneous Vaginal Delivery-Single. Delivery Mode: Spontaneous. Presentation: Left Occiput Anterior (UZMA). Nuchal Cord: None (hypocoiled cord). Prep: Povidone-Iodine (Betadine. Anesthesia Type: Combined Spinal Epidural. Amniotic Fluid Description: Clear. Episiotomy Type: None. Laceration: 2nd Degree (midline). Suture type: Other (monocryl). Suture size: 3-0 (x2). Placenta: Intact, Spontaneous (2328 hours Saturday06/17/2020 intack discarded hypocoiled cord). Cord: 3 Vessels. Estimated Blood Loss: 250. Resuscitation Needed: No. [place]: Suctioned, Bulb Syringe, Stimulated, Warmed, [place] Used, Warmer Used. Provider: Jeff Woods. Score 1 min: 8. Score 5 min: 9. - General Info. Date of Service: 06/17/20. Admission Dx/Problem (Free Text): Patient Status Order with Admit Dx/Problem. 06/17/20 18:02. Patient Status [ADT] Routine. Admission Diagnosis/Problem. Admission Diagnosis/Problem . Functional Status: Reports: Pain Controlled. - Review of Systems. General: Reports: No Symptoms. HEENT: Reports: No Symptoms. Pulmonary: Reports: No Symptoms. Cardiovascular: Reports: No Symptoms. Gastrointestinal: Reports: No Symptoms. Genitourinary: Reports: No Symptoms. Musculoskeletal: Reports: No Symptoms. Skin: Reports: No Symptoms. Neurological: Reports: No Symptoms. Psychiatric: Reports: No Symptoms. - Patient Data. Vitals - Most Recent: Last Vital Signs. Temp 97.8 F 06/17/20 19:15. Pulse 105 H 06/17/20 19:15. Resp 18 06/17/20 19:15. BP 106/53 L 06/17/20 19:15. Pulse Ox 100 06/17/20 19:15. Weight - Most Recent: 216 lb 14.4 oz. Lab Results Last 24 Hours: Laboratory Results - last 24 hr. 06/17/2012/10/2011Range/Units. 17:4518:0618:06. WBC 14.47 H (3.98-10.04) K/mm3. RBC 4.40 (3.98-5.22) M/mm3. Hgb 12.2 (11.2-15.7) gm/dl. Hct 37.3 (34.1-44.9) %. MCV 84.8 (79.4-94.8) fl. MCH 27.7 (25.6- 32.2) pg. MCHC 32.7 (32.2-35.5) g/dl. RDW Std Deviation 43.3 (36.4-46.3) fL. Plt Count 204 (182-369) K/mm3. MPV 8.9 L (9.4-12.3) fl. Neut % (Auto) 84.4 H (34.0-71.1) %. Lymph % (Auto) 9.9 L (19.3-51.7) %. [place] % (Auto) 5.2 (4.7-12.5) %. Eos % (Auto) 0.1 L (0.7-5.8). Baso % (Auto) 0.1 (0.1-1.2) %. Neut # (Auto) 12.22 H (1.56-6.13) K/mm3. Lymph # (Auto) 1.43 (1.18-3.74) K/mm3. [place] # (Auto) 0.75 H (0.24-0.36) K/mm3. Eos # (Auto) 0.01 L (0.04- 0.36) K/mm3. Baso # (Auto) 0.01 (0.01-0.08) K/mm3. Manual Slide Review Ab normal smear. SARS-CoV-2 RNA (PENNY) Negative (NEGATIVE). Blood Type O POSITIVE. Gel Antibody Screen Negative. Med Orders - Current: Current Medications. Diphenhydramine HCl (Benadryl) 25 mg IVPUSH Q6H PRN. PRN Reason: pruritis. Ephedrine Sulfate (Ephedrine Sulfate) 5 mg IVPUSH ASDIRECTED PRN. PRN Reason: Hypotension. Fentanyl (Sublimaze) 100 mcg EPIDUR Q3H PRN. PRN Reason: Pain. Last Admin: 06/17/20 18:42 Dose: 100 mcg. Documented by: Fentanyl/Bupivacaine HCl (Fentanyl/Bupivacaine/Ns 2 Mcg-0.125% 100 Ml) 100 ml EPIDUR ASDIRECTED PRN. PRN Reason: Pain. Last Admin: 06/17/20 18:43 Dose: 100 ml. Documented by: Oxytocin/Lactated Ringer's (Pitocin In Lr 10 Units/1,000 Ml) 10 unit in 1,000 mls @ 500 mls/hr IV .CONTINUOUS SONIDO. Lactated Ringer's (Ringers, Lactated) 1,000 mls @ 100 mls/hr IV ASDIRECTED SONIDO. Last Admin: 06/17/20 21:11 Dose: 100 mls/hr. Documented by: Nalbuphine HCl (Nubain) 10 mg IVPUSH Q2H PRN. PRN Reason: Pain. Ondansetron HCl (Zofran) 4 mg IVPUSH Q4H PRN. PRN Reason: Nausea/Vomiting. Sodium Chloride (Saline Flush) 10 ml FLUSH ASDIRECTED PRN. PRN Reason: Keep Vein Open. Discontinued Medications. Lidocaine HCl (Xylocaine 1%) 50 ml INJECT ONETIME ONE. Stop: 06/17/20 18:03. - Exam. Quality Assessment: DVT Prophylaxis. General: Alert. Extremities: Normal Inspection, Non-Tender, No Pedal Edema, Normal Capillary Refill. - Problem List & Annotations. (1) 39 weeks gestation of . SNOMED Code(s): 11368132. Code(s): Z3A.39 - 39 WEEKS GESTATION OF Status: Acute Current Visit: Yes. (2) Second degree perineal laceration during delivery. SNOMED Code(s): 5956794. Code(s): O70.1 - SECOND DEGREE PERINEAL LACERATION DURING DELIVERY Status: Acute Current Visit: Yes. (3) Cord complication NEC-deliv. SNOMED Code(s): 201095586, 002985028. Code(s): O69.89X0 - LABOR AND DELIVERY COMPLICATED BY OTH CORD COMP, UNSP Status: Acute Current Visit: Yes. - Problem List Review. Problem List Initiated/Reviewed/Updated: No. - My Orders. Last 24 Hours: My Active Orders. 06/17/20 Dinner. Regular Diet [DIET]. 06/17/20 18:02. Patient Status [ADT] Routine. Activity as Tolerated [RC] PFP. Communication Order [RC] ASDIRECTED. Notify Provider [RC] PFP. Notify Provider [RC] PRN. Urinary Catheter Assessment [RC] ASDIRECTED. RAPID PLASMA REAGIN,RPR [CHEM] Routine. Nalbuphine [Nubain] 10 mg IVPUSH Q2H PRN. Ondansetron [Zofran] 4 mg IVPUSH Q4H PRN. Sodium Chloride 0.9% [Saline Flush] 10 ml FLUSH ASDIRECTED PRN. Electronic Heart Tones Ext w TOCO [WOMSER] Routine. Electronic Heart Tones Internal [WOMSER] Per Unit Routine. Peripheral IV Insertion Adult [OM.PC] Routine. Resuscitation Status Routine. 06/17/20 18:03. Peripheral IV Care [RC] Q2HR. 06/17/20 18:15. Lactated Ringers [Ringers, Lactated] 1,000 ml IV ASDIRECTED. Oxytocin/Lactated Ringers [Pitocin in LR 10 Units/1,000 ML] 10 unit in 1,000 ml IV .CONTINUOUS. - Plan. Plan:: Plan delivery Diagnosis: Stroke: No - Discharge Data Discharge Date: 06/19/20 Discharge Disposition: Home, Self-Care 01 Condition: Good - Referral to Home Health Primary Care Physician: Zaid Peoples MD - Discharge Diagnosis/Problem(s) (1) 39 weeks gestation of SNOMED Code(s): 24690816 ICD Code: Z3A.39 - 39 WEEKS GESTATION OF Status: Acute Current Visit: Yes (2) Second degree perineal laceration during delivery SNOMED Code(s): 9444960 ICD Code: O70.1 - SECOND DEGREE PERINEAL LACERATION DURING DELIVERY Status: Acute Current Visit: Yes (3) Cord complication NEC-deliv SNOMED Code(s): 207700968, 325302929 ICD Code: O69.89X0 - LABOR AND DELIVERY COMPLICATED BY OTH CORD COMP, UNSP Status: Acute Current Visit: Yes - Patient Summary/Data Complications: None Consults: None Hospital Course: Uneventful - Patient Instructions Diet: Usual Diet as Tolerated Driving: Do Not Drive (X48 hours) Showering/Bathing: May Shower Notify Provider of: Fever, Increased Pain, Swelling and Redness, Drainage, Nausea and/or Vomiting - Discharge Plan *PRESCRIPTION DRUG MONITORING PROGRAM REVIEWED*: Not Applicable *COPY OF PRESCRIPTION DRUG MONITORING REPORT IN PATIENT JAKE: Not Applicable Home Medications: Home Meds Calcium Carbonate [Calcium] 500 mg PO DAILY 06/17/20 [History] Ferrous Sulfate [Iron] 325 mg PO DAILY 06/17/20 [History] No122/Iron/Folic Acid [ Multi Tablet] 1 each PO DAILY 06/17/20 [History] Acetaminophen [Tylenol] 650 mg PO Q6H PRN tablet 06/19/20 [Rx] Ibuprofen [Motrin] 600 mg PO Q6H PRN tablet 06/19/20 [Rx] witjessica Slime [Tucks] 1 pad TOP ASDIRECTED PRN pad 06/19/20 [Rx] Patient Handouts: Breast Pumping Tips, and Self-Care, Care After Vaginal Delivery Referrals: Zaid Peoples MD [Primary Care Provider] - (Call Saturday to make an appointment to see Dr. Peoples in 2 weeks) - Discharge Summary/Plan Comment DC Time >30 min.: No - Patient Data Vitals - Most Recent: Last Vital Signs Temp 97.7 F 06/19/20 08:40 Pulse 93 06/19/20 08:40 Resp 15 06/19/20 08:40 BP 119/78 06/19/20 08:40 Pulse Ox 99 06/19/20 08:40 Weight - Most Recent: 216 lb 14.4 oz Med Orders - Current: Current Medications Acetaminophen (Tylenol) 650 mg PO Q4H PRN PRN Reason: mild pain or fever Benzocaine/Menthol (Dermoplast Pain Relief [place]) 56 gm TOP ASDIRECTED PRN PRN Reason: perineal discomfort Last Admin: 06/18/20 01:50 Dose: 1 applic Documented by: Ibuprofen (Motrin) 600 mg PO Q4H PRN PRN Reason: Mild pain or fever Last Admin: 06/19/20 03:52 Dose: 600 mg Documented by: Oswaldo Richter (Adriánckdeisy) 1 pad TOP ASDIRECTED PRN PRN Reason: perineal discomfort Last Admin: 06/18/20 01:51 Dose: 1 container Documented by: Discontinued Medications Bupivacaine HCl (Sensorcaine-Mpf 0.25%) 10 ml .ROUTE .STK-MED ONE Stop: 06/18/20 06:01 Diphenhydramine HCl (Benadryl) 25 mg IVPUSH Q6H PRN PRN Reason: pruritis Ephedrine Sulfate (Ephedrine Sulfate) 5 mg IVPUSH ASDIRECTED PRN PRN Reason: Hypotension Fentanyl (Sublimaze) 100 mcg EPIDUR Q3H PRN PRN Reason: Pain Last Admin: 06/17/20 18:42 Dose: 100 mcg Documented by: Fentanyl/Bupivacaine HCl (Fentanyl/Bupivacaine/Ns 2 Mcg-0.125% 100 Ml) 100 ml EPIDUR ASDIRECTED PRN PRN Reason: Pain Last Admin: 06/17/20 18:43 Dose: 100 ml Documented by: Oxytocin/Lactated Ringer's (Pitocin In Lr 10 Units/1,000 Ml) 10 unit in 1,000 mls @ 500 mls/hr IV .CONTINUOUS SONIDO Last Admin: 06/18/20 00:27 Dose: 500 mls/hr Documented by: Lactated Ringer's (Ringers, Lactated) 1,000 mls @ 100 mls/hr IV ASDIRECTED SONIDO Last Admin: 06/17/20 21:11 Dose: 100 mls/hr Documented by: Lidocaine HCl (Xylocaine 1%) 50 ml INJECT ONETIME ONE Stop: 06/17/20 18:03 Last Admin: 06/18/20 03:02 Dose: Not Given Documented by: Nalbuphine HCl (Nubain) 10 mg IVPUSH Q2H PRN PRN Reason: Pain Ondansetron HCl (Zofran) 4 mg IVPUSH Q4H PRN PRN Reason: Nausea/Vomiting Sodium Chloride (Saline Flush) 10 ml FLUSH ASDIRECTED PRN PRN Reason: Keep Vein Open
== END 2020-06-19 16:00 | disposition home or self-care (01) | DRG 560 ==
LOC: JD.OBCHECK 17:21 → JD.OB 17:22 → JD.OBCHECK 18:02 → JD.OB 18:02 → OBSVTOIN 23:23 → JD.OB 23:23
PROVIDERS: ADMIT Obstetrics & Gynecology; ATTEND Obstetrics & Gynecology
PROC: 10E0XZZ Delivery of Products of Conception, External Approach (ICD-10-PCS; principal; 2020-06-17)
PROC: 0KQM0ZZ Repair Perineum Muscle, Open Approach (ICD-10-PCS; 2020-06-17)
PROC: 3E0R3BZ Introduction of Anesthetic Agent into Spinal Canal, Percutaneous Approach (ICD-10-PCS; 2020-06-17)
PROC: 00HU33Z Insertion of Infusion Device into Spinal Canal, Percutaneous Approach (ICD-10-PCS; 2020-06-17)
DX: O69.89X0 Labor and delivery complicated by other cord complications, not applicable or unspecified (principal); O70.1 Second degree perineal laceration during delivery; Z37.0 Single live birth; Z3A.39 39 weeks gestation of pregnancy; Z20.828 Contact with and (suspected) exposure to other viral communicable diseases
CPT/HCPCS: 01967; 36415; 51702; 59025; 59409; 85025; 86850; 86900; 86901; A9270-GY; J2590; J3010; J3490; J7120; U0002

== ENCOUNTER 2022-09-29 17:30 | Emergency (ER) | payer BC | END 2022-09-29 20:37 | disposition home or self-care (01) | LOC: JD.ED 17:30 | DX: O20.9 Hemorrhage in early pregnancy, unspecified (principal); Z3A.01 Less than 8 weeks gestation of pregnancy | CPT/HCPCS: 36415; 76817; 76817-26; 84702; 85014; 85018; 99283; 99284 ==

== ENCOUNTER 2024-01-08 11:57 | Inpatient (IN) | payer BC ==
[~2024-01-08 11:57] MED LIST: Bupivacaine 0.25% 10 ML SDV ONE
[2024-01-08] MEDS ORDERED: Sodium Chloride 0.9% 10 ML Syringe FLUSH PRN (12:15)
[2024-01-08] MEDS ORDERED: Ondansetron 4 MG/2 ML SDV IVPUSH PRN (12:15)
[2024-01-08] MEDS ORDERED: Lidocaine 1% 50 ML MDV INJECT PRN (12:15)
[2024-01-08] MEDS ORDERED: Nalbuphine 10 MG/ML Syringe IVPUSH PRN (12:15)
[2024-01-08] MEDS: Penicillin G Potassium 5 MILLUNITS in Sodium Chloride 0.9% 100 ML IV SCH (12:29)
[2024-01-08] MEDS: Lactated Ringers 1,000 ML IV SCH (12:30)
[2024-01-08] MEDS ORDERED: ePHEDrine 50 MG/ML SDV IVPUSH PRN (12:40)
[2024-01-08] MEDS ORDERED: diphenhydrAMINE 50 MG/ML SDV IVPUSH PRN (12:40)
[2024-01-08 12:43] LABS: BASOPHILS PERCENT AUTO 0.3 % (0.0-1.0); EOSINOPHILS PERCENT AUTO 0.2 % (0.0-6.0); HEMATOCRIT 42.2 % (37.0-47.0); IMMATURE GRAN ABSOLUTE AUTO 0.06 K/mm3 (0.00-0.05); IMMATURE GRAN PERCENT AUTO 0.5 % (0.0-0.4); LYMPHOCYTES ABSOLUTE AUTO 2.8 K/mm3 (1.0-4.8); LYMPHOCYTES PERCENT AUTO 24.5 % (24.0-44.0); MEAN CORPUSCULAR HEMOGLOBIN 27.8 pg (28.0-32.0); MEAN CORPUSCULAR HGB CONC 33.2 g/dl (32.0-36.0); MEAN CORPUSCULAR VOLUME 83.9 fl (83.0-99.0); MEAN PLATELET VOLUME 9.9 fl (9.4-12.3); MONOCYTES ABSOLUTE AUTO 0.6 K/mm3 (0.0-0.8); MONOCYTES PERCENT AUTO 4.9 % (0.0-8.0); NEUTROPHILS PERCENT AUTO 69.6 % (41.0-71.0); PLATELET COUNT,PLT 194 K/mm3 (150-400); RED BLOOD CELL COUNT 5.03 M/mm3 (4.10-5.30); WHITE BLOOD CELL COUNT,WBC 11.48 K/mm3 (3.9-11.3)
[2024-01-08] MEDS: fentaNYL 100 MCG/2 ML SDV EPIDUR PRN (12:54)
[2024-01-08] MEDS: Bupivacaine/fentaNYL/NS 100 ML Bag EPIDUR PRN (12:54)
[2024-01-08] MEDS: Penicillin G Potassium 2.5 MILLUNITS in Sodium Chloride 0.9% 100 ML IV SCH (16:06)
[2024-01-08] MEDS: Oxytocin/Lactated Ringers 30 UNIT/500 ML BAG IV SCH (16:21)
[2024-01-08] MEDS: Misoprostol 200 MCG Tab ONE (16:57)
[2024-01-08] MEDS ORDERED: Acetaminophen 325 MG Tab PO PRN (17:35)
[2024-01-08] MEDS: Benzocaine/Menthol 20%-0.5% Spray 78 GM Cannister TOP PRN (18:03)
[2024-01-08] MEDS: Witch Hazel Medicated Pads 40/Jar TOP PRN (18:03)
[2024-01-08] MEDS: Misoprostol 100 MCG Tab PO ONE (18:04)
[2024-01-08] MEDS: Ibuprofen 600 MG Tab PO SCH (20:31)
[2024-01-08] MEDS ORDERED: Sodium Chloride 0.9% 10 ML Syringe FLUSH SCH (21:00)
== END 2024-01-09 18:00 | disposition home or self-care (01) | DRG 560 ==
LOC: JD.OBCHECK 11:57 → JD.OB 12:04 → JD.OBCHECK 12:29 → OBSVTOIN 16:41 → JD.OB 16:42
PROVIDERS: ADMIT Family Medicine; ATTEND Family Medicine
PROC: 10E0XZZ Delivery of Products of Conception, External Approach (ICD-10-PCS; principal; 2024-01-08)
PROC: 0KQM0ZZ Repair Perineum Muscle, Open Approach (ICD-10-PCS; 2024-01-08)
PROC: 3E0R3BZ Introduction of Anesthetic Agent into Spinal Canal, Percutaneous Approach (ICD-10-PCS; 2024-01-08)
PROC: 00HU33Z Insertion of Infusion Device into Spinal Canal, Percutaneous Approach (ICD-10-PCS; 2024-01-08)
DX: O99.824 Streptococcus B carrier state complicating childbirth (principal); Z37.0 Single live birth; Z3A.39 39 weeks gestation of pregnancy; O70.1 Second degree perineal laceration during delivery; O69.81X0 Labor and delivery complicated by cord around neck, without compression, not applicable or unspecified; O42.02 Full-term premature rupture of membranes, onset of labor within 24 hours of rupture
CPT/HCPCS: 36415; 59025; 59409; 85025; 86592; 86850; 86900; 86901; A9270-GY; J0665; J2540; J3010; J3490; J7120; J7999